=== PATIENT | female | born 1995 | race Caucasian/White ===

== ENCOUNTER 2023-06-09 16:57 | Emergency (ER) | payer SELFPAY ==
[~2023-06-09] VITALS: Ht 152.4 cm; Wt 65.8 kg
[2023-06-09 17:06] VITALS: BP 137/89; PULSE 84; RESP 18; TEMP 98.9; O2SAT 99
[2023-06-09] MEDS ORDERED: POLY15SO74 RIGHT EYE (17:40)
[2023-06-09] MEDS ORDERED: PRED20TA5 PO (17:40)
[2023-06-09] MEDS ORDERED: ACYC400T14 PO (17:40)
[2023-06-09] MEDS: predniSONE 20 MG TAB PO ONE (17:53)
== END 2023-06-09 18:10 | disposition home or self-care (01) ==
LOC: MED 16:57
DX: G51.0 Bell's palsy (principal); Z79.899 Other long term (current) drug therapy
CPT/HCPCS: 82948; 99283; J7512